=== PATIENT | male | born 1985 | race Caucasian/White ===

== ENCOUNTER 2017-03-18 23:53 | Emergency (ER) | payer SELFPAY ==
[2017-03-19] MEDS ORDERED: OLANZapine 10 MG/2 ML VIAL IM ONE ×2 (00:18)
[2017-03-19 00:23] VITALS: RESP 20; O2SAT 93
[2017-03-19 00:42] LABS: % IMMATURE GRANULYOCYTES 0.4 % (0.0-1.1); ABSOLUTE IMMATURE GRANULOCYTES 0.03 10^3/uL (0.00-0.10); ADD DIFF? NO; ADD MORPH? NO; ADD SCAN? NO; ATYPICAL LYMPHOCYTE FLAG 0 (0-99); FRAGMENT RBC FLAG 0 (0-99); HEMATOCRIT 44.3 % (40.0-51.0); LEFT SHIFT FLG 0 (0-99); LIPEMIA HEMOLYSIS FLAG 90 (0-99); MEAN CELL HEMOGLOBIN 28.5 pg (27.9-34.1); MEAN CELL HEMOGLOBIN CONCENTR. 33.9 g/dL (32.4-36.7); MEAN CELL VOLUME 84.1 fL (81.5-99.8); MEAN PLATELET VOLUME 11.2 fL (8.7-11.7); PLATELET CLUMPS FLAG 0 (0-99); PLATELET COUNT 253 10^3/uL (150-400); RED BLOOD CELL COUNT 5.27 10^6/uL (4.40-6.38); RED CELL DISTRIBUTION WIDTH 13.1 % (11.5-15.2)
[2017-03-19 00:56] LABS: CALCIUM 9.3 mg/dL (8.5-10.4); CARBON DIOXIDE 18 mEq/l (22-31); CHLORIDE 111 mEq/L (97-110); CREATININE 0.9 mg/dL (0.7-1.3); ETHANOL SERUM 187 mg/dL (0-10); GLOMERULAR FILTRATION RATE > 60; GLUCOSE 176 mg/dL (70-100); SODIUM 149 mEq/L (134-144)
[2017-03-19 01:04] LABS: ANION GAP 20 mEq/L (8-16); POTASSIUM 3.8 mEq/L (3.5-5.2)
--- NOTE | 2017-03-19 02:42 | EDPHY ---
H & P Stated Complaint: CI - AMS and Combative Time Seen by Provider: 03/18/17 23:57 HPI/ROS: Chief Complaint: Intoxicated, combative, altered mental status HPI: 31-year-old male who was [place] the [employer] this evening. Patient admits to drinking alcohol and using MDMA. Patient became agitated and combative. EMS was called. He was given Versed IM. Patient denies any other injuries or complaints. Did not his head. No loss of consciousness. He has required 4 point restraints initially. ROS: Patient refusing to answer PMH: Patient refusing to answer Social History: Positive smoking, positive alcohol, positive MDMA Family History: non-contributory Physical Exam: Gen: Awake, Alert, No Distress HEENT: Nose: no rhinorrhea Eyes: PERRLA, EOMI Mouth: Moist mucosa Neck: Supple, no JVD Chest: nontender, lungs clear to auscultation Heart: S1, S2 normal, no murmur Abd: Soft, non-tender, no guarding Back: no CVA tenderness, no midline tenderness Ext: no edema, non-tender Skin: no rash Neuro: CN II-XII intact, Sensation grossly intact, Strength 5/5 in bilateral upper and lower extremities - Personal History Current Tetanus/Diphtheria Vaccine: Unsure Current Tetanus Diphtheria and Acellular Pertussis (TDAP): Unsure - Medical/Surgical History Hx Asthma: No Hx Chronic Respiratory Disease: No Hx Diabetes: No Hx Cardiac Disease: No Hx Renal Disease: No Hx Cirrhosis: No Hx Alcoholism: No Hx HIV/AIDS: No Hx Splenectomy or Spleen Trauma: No Other PMH: Unknown - Social History Smoking Status: Unknown if ever smoked Constitutional: Initial Vital Signs O2 Sat (%) 92 03/18/17 23:55 O2 Delivery Mode Nasal Cannula O2 (L/minute) 1 Allergies/Adverse Reactions: Unable to Assess Allergy (Unverified 03/19/17 00:12) Home Medications: Medication Instructions Recorded Unobtainable 03/19/17 Medical Decision Making ED Course/Re-evaluation: Patient is now awake and appropriate. Ambulating unassisted to the bathroom. No current complaints. Patient be discharged with follow-up as an outpatient. - Data Points Laboratory Results: Laboratory Results 03/19/17 00:10 03/19/17 00:10 03/19/17 03/19/17 03/19/17 00:10 00:10 00:06 WBC 7.67 10^3/uL 10^3/uL (3.80-9.50) RBC 5.27 10^6/uL 10^6/uL (4.40-6.38) Hgb 15.0 g/dL g/dL (13.7-17.5) POC Hgb 15.0 gm/dL gm/dL (13.7-17.5) Hct 44.3 % % (40.0-51.0) POC Hct 44 % % (40-51) MCV 84.1 fL fL (81.5-99.8) MCH 28.5 pg pg (27.9-34.1) MCHC 33.9 g/dL g/dL (32.4-36.7) RDW 13.1 % % (11.5-15.2) Plt Count 253 10^3/uL 10^3/uL (150-400) MPV 11.2 fL fL (8.7-11.7) Neut % (Auto) 76.5 % H % (39.3-74.2) Lymph % (Auto) 16.0 % % (15.0-45.0) [place] % (Auto) 6.3 % % (4.5-13.0) Eos % (Auto) 0.1 % L % (0.6-7.6) Baso % (Auto) 0.7 % % (0.3-1.7) Nucleat RBC Rel Count 0.0 % % (0.0-0.2) Absolute Neuts (auto) 5.87 10^3/uL 10^3/uL (1.70-6.50) Absolute Lymphs (auto) 1.23 10^3/uL 10^3/uL (1.00-3.00) Absolute Monos (auto) 0.48 10^3/uL 10^3/uL (0.30-0.80) Absolute Eos (auto) 0.01 10^3/uL L 10^3/uL (0.03-0.40) Absolute Basos (auto) 0.05 10^3/uL 10^3/uL (0.02-0.10) Absolute Nucleated RBC 0.00 10^3/uL 10^3/uL (0-0.01) Immature Gran % 0.4 % % (0.0-1.1) Immature Gran # 0.03 10^3/uL 10^3/uL (0.00-0.10) POC Sodium 149 mEq/L H mEq/L (134-144) Sodium 149 mEq/L H mEq/L (134-144) POC Potassium 3.5 mEq/L mEq/L (3.3-5.0) Potassium 3.8 mEq/L mEq/L (3.5-5.2) POC Chloride 106 mEq/L mEq/L (97-110) Chloride 111 mEq/L H mEq/L (97-110) Carbon Dioxide 18 mEq/l L mEq/l (22-31) Anion Gap 20 mEq/L H mEq/L (8-16) POC BUN 14 mg/dL mg/dL (7-23) BUN 14 mg/dL mg/dL (7-23) Creatinine 0.9 mg/dL mg/dL (0.7-1.3) POC Creatinine 1.1 mg/dL mg/dL (0.7-1.3) Estimated GFR > 60 Glucose 176 mg/dL H mg/dL (70-100) POC Glucose 177 mg/dL H mg/dL (70-100) Calcium 9.3 mg/dL mg/dL (8.5-10.4) Ethyl Alcohol 187 mg/dL H mg/dL (0-10) Medications Given: Discontinued Medications Olanzapine (Zyprexa Im Injection) 10 mg IM EDNOW ONE Stop: 03/19/17 00:01 Last Admin: 03/19/17 00:00 Dose: 10 mg Point of Care Test Results: 03/19/17 00:06 POC Sodium 149 H POC Potassium 3.5 POC Chloride 106 POC BUN 14 POC Creatinine 1.1 POC Glucose 177 H Departure - Departure Disposition: Home, Routine, Self-Care Clinical Impression: Polysubstance abuse Condition: Good Instructions: Polysubstance Abuse (ED) Additional Instructions: Follow up with primary care physician for any concerns. Return to the emergency department for chest pain, headache, nausea, vomiting, fevers, chills, or any other concerns. Referrals: Patient,NotPresent [Unknown] - As per Instructions
[2017-03-19 02:57] VITALS: BP 97/60; PULSE 101; TEMP 98.2
== END 2017-03-19 03:31 | disposition home or self-care (01) ==
DX: F19.10 Other psychoactive substance abuse, uncomplicated (principal); F17.200 Nicotine dependence, unspecified, uncomplicated
CPT/HCPCS: 82947-QW; 96374; G0480